=== PATIENT | female | born 1970 | race Caucasian/White ===

== ENCOUNTER 2017-04-23 05:18 | Inpatient (IN) | payer OTHER ==
[2017-04-23] VITALS (24 sets, daily range): BP systolic 102–150; BP diastolic 57–82; PULSE 66–81; RESP 15–26; Ht 152.4 cm; Wt 110.0 kg
[~2017-04-23] VITALS: Ht 152.4 cm; Wt 110.0 kg
[2017-04-23] MEDS ORDERED: CA CHLORIDE 10% 10 ML SYRINGE ONE (06:26)
[2017-04-23] MEDS ORDERED: BUPIVACAINE 0.25% (MPF) 30 ML INJ ONE (06:26)
[2017-04-23] MEDS ORDERED: BUPIVACAINE 0.25%/EPI (SDV) 30 ML INJ ONE (06:26)
[2017-04-23] MEDS ORDERED: SURGIFOAM POWDER 1 GM KIT ONE (06:26)
[2017-04-23] MEDS ORDERED: THROMBIN 5000 UNIT VIAL ONE (06:26)
[2017-04-23] MEDS ORDERED: POLYMYXIN/BACITRACIN 1L IRRIG ONE (06:35)
[2017-04-23] MEDS ORDERED: RANI150T5 PO (06:36)
[2017-04-23] MEDS ORDERED: LISI40TA9 PO (06:36)
[2017-04-23] MEDS ORDERED: ASPI-664 PO (06:36)
[2017-04-23] MEDS ORDERED: FELO5TAB35 PO (06:36)
[2017-04-23] MEDS ORDERED: CLON-379 PO (06:36)
[2017-04-23] MEDS ORDERED: ATOR40TA68 PO (06:36)
[2017-04-23] MEDS ORDERED: METO-429 PO (06:36)
[2017-04-23] MEDS ORDERED: METF500T4 PO (06:36)
[2017-04-23] MEDS ORDERED: GLYB5TAB3 PO (06:36)
--- NOTE | 2017-04-23 06:53 | HPN ---
Date/Time of Note Date/Time of Note DATE: 04/23/17 TIME: 06:52 Interval H&P Admission Note Pt. seen H&P reviewed: No system changes AARON HOWARD MD Apr 23, 2017 06:53
[2017-04-23] MEDS ORDERED: PROPOFOL 100 ML ONE (06:56)
[2017-04-23] MEDS ORDERED: ROCURONIUM 50 MG INJ ONE ×3 (06:56→08:57)
[2017-04-23] MEDS ORDERED: CEFAZOLIN 1 GM INJ ONE ×2 (06:56→07:00)
[2017-04-23] MEDS ORDERED: MIDAZOLAM 1 MG/ML 2 ML INJ ONE (06:56)
[2017-04-23] MEDS ORDERED: BISACODYL 10 MG SUPP PR PRN (07:00)
[2017-04-23] MEDS ORDERED: ACETAMINOPHEN 325 MG TAB PO PRN (07:00)
[2017-04-23] MEDS ORDERED: ONDANSETRON 4 MG INJ IV PRN ×2 (07:00→09:00)
[2017-04-23] MEDS ORDERED: AL HYDROX/MG HYDROX/SIMETH 30 ML CUP PO PRN (07:00)
[2017-04-23] MEDS ORDERED: LACTATED RINGER'S 1,000 ML IV* SCH (07:00)
[2017-04-23] MEDS ORDERED: CEPASTAT LOZENGE MT PRN (07:00)
[2017-04-23] MEDS ORDERED: CYCLOBENZAPRINE 10 MG TAB PO PRN (07:00)
[2017-04-23] MEDS ORDERED: NALOXONE (0.4 MG/ML) INJ IV PRN (07:00)
[2017-04-23] MEDS ORDERED: CEFAZOLIN 2 GM/50 ML (PMX) 50 ML IVPB ONE (07:00)
[2017-04-23] MEDS ORDERED: HYDROmorphONE 1 MG/ML SYG IV PRN (07:00)
[2017-04-23] MEDS ORDERED: DIPHENHYDRAMINE 25 MG CAP PO PRN (07:00)
[2017-04-23] MEDS ORDERED: HYDROCODONE/APAP (10/325) TAB PO PRN (07:00)
[2017-04-23] MEDS: CEFAZOLIN 1 GM/50 ML (PMX) 50 ML IVPB SCH ×3 (07:10→23:02)
[2017-04-23] MEDS ORDERED: CARISOPRODOL 350 MG TAB PO PRN (07:30)
[2017-04-23] MEDS ORDERED: PHENYLephrine (100 MCG/ML) 5ML SYG ONE ×2 (07:34→12:53)
[2017-04-23] MEDS ORDERED: POLYMYXIN/BACITRACIN 1L IRRIG IRR ONE (07:57)
[2017-04-23] MEDS ORDERED: BUPIVACAINE 0.25%/EPI (SDV) 30 ML INJ INJ ONE (07:57)
[2017-04-23] MEDS ORDERED: THROMBIN 5000 UNIT VIAL TOP ONE (07:57)
[2017-04-23] MEDS ORDERED: ACETAMINOPHEN 1000MG/100ML IV 100 ML ONE ×2 (08:17→12:54)
[2017-04-23] MEDS ORDERED: ONDANSETRON 4 MG INJ ONE ×3 (08:18→12:54)
[2017-04-23] MEDS ORDERED: DEXAMETHASONE 4 MG/ML 1 ML INJ ONE ×2 (08:18→12:54)
[2017-04-23] MEDS ORDERED: METOCLOPRAMIDE 10 MG INJ ONE ×2 (08:18→12:54)
[2017-04-23] MEDS ORDERED: NEOSTIGMINE 3 MG/3 ML SYRINGE ONE ×2 (08:49→13:44)
[2017-04-23] MEDS ORDERED: GLYCOPYRROLATE 1 MG INJ ONE ×2 (08:49→13:44)
[2017-04-23] MEDS ORDERED: SUCCINYLCHOLINE CHLORIDE 100 MG/5 ML SYG IV ONE (08:57)
[2017-04-23] MEDS ORDERED: OXYCODONE/ACETAMINOPHEN (5/325) TAB PO PRN ×2 (09:00)
[2017-04-23] MEDS ORDERED: DIPHENHYDRAMINE 50 MG INJ IV PRN (09:00)
[2017-04-23] MEDS ORDERED: ALBUMIN HUMAN 5% 250 ML IV PRN (09:00)
[2017-04-23] MEDS ORDERED: METOCLOPRAMIDE 10 MG INJ IV PRN (09:00)
[2017-04-23] MEDS ORDERED: PROPOFOL 20 ML ONE ×2 (09:00→10:11)
[2017-04-23] MEDS ORDERED: HYDROmorphONE (0.2 MG/ML) 10ML SYG IV PRN ×3 (09:00)
[2017-04-23] MEDS ORDERED: LABETALOL HCL 20MG INJ IV PRN (09:00)
[2017-04-23] MEDS ORDERED: morphine (1 MG/ML) 10ML SYRINGE IV PRN ×3 (09:00)
[2017-04-23] MEDS ORDERED: EPHEDrine SULFATE 50 MG/5 ML SYG IV PRN (09:00)
[2017-04-23] MEDS ORDERED: hydrALAzine 20 MG INJ IV PRN (09:00)
[2017-04-23] MEDS ORDERED: MEPERIDINE 25 MG INJ IV PRN (09:00)
[2017-04-23] MEDS ORDERED: FENTAnyl 50 MCG/ML VIAL ONE (09:22)
--- NOTE | 2017-04-23 09:58 | RADRPT ---
PROCEDURE: XR Lumbar Spine one view. CLINICAL INDICATION: Low back pain. Intraoperative. TECHNIQUE: Prone portable cross-table lateral. COMPARISON: No prior studies are available for comparison. FINDINGS: For the purposes of this report, the last apparent true disc level is considered to be L5-S1. Based on this, the posterior needle marker is a present at the upper L4 level and the S1 level. IMPRESSION: 1. Intraoperative imaging as described above. RPTAT: QQ .Santos Murillo MD, MD Date Time Electronically viewed and signed by .Santos Murillo MD, MD on 04/23/2017 09:58 .R/
--- NOTE | 2017-04-23 09:58 | RADRPT ---
PROCEDURE: XR Lumbar Spine one view. CLINICAL INDICATION: Low back pain. Intraoperative. TECHNIQUE: Prone portable cross-table lateral. COMPARISON: Prior study done earlier the same day. FINDINGS: For the purposes of this report, the last apparent true disc level is considered to be L5-S1. Based on this, the posterior surgical instrument is present overlying the L5-S1 level. IMPRESSION: 1. Intraoperative imaging as described above. RPTAT: QQ .Santos Murillo MD, MD Date Time Electronically viewed and signed by .Santos Murillo MD, on 04/23/2017 09:58 .R/
[2017-04-23] MEDS ORDERED: LABETALOL HCL 20MG INJ ONE (10:09)
--- NOTE | 2017-04-23 10:39 | OPR ---
Date/Time of Note Date/Time of Note DATE: 04/23/17 TIME: 10:38 Operative Report Preoperative Diagnosis L4-5 and L5-S1 HNP Postoperative Diagnosis L4-5 and L5-S1 HNP Operation/Procedure Performed right L4-5 and L5-S1 discectomy Surgeon: AARON HOWARD MD licensed sales assistant: STACY ALFARO PA-C Anesthesia: general Estimated Blood Loss: 10 - 50 ml's Specimens disk AARON HOWARD MD Apr 23, 2017 10:39
[2017-04-23] MEDS: DOCUSATE SODIUM 100 MG CAP PO SCH ×2 (11:38→20:11)
[2017-04-23] MEDS: HYDROmorphONE 0.2 MG/ML PCA IV SCH (11:38)
[2017-04-23] MEDS ORDERED: INSULIN ASPART [NOVOLOG] 3 ML PEN SC ONE (12:00)
--- NOTE | 2017-04-23 13:04 | CONS ---
Date/Time of Note Date/Time of Note DATE: 04/23/17 TIME: 12:52 Assessment/Plan Assessment/Plan Additional Assessment/Plan monitor glucose and blood pressure-----thank you ketty Consultation Date/Type/Reason Admit Date/Time Apr 23, 2017 at 05:18 Initial Consult Date 04/17/2017 Type of Consultation: pre=op int.med consult -endo c Reason for Consultation medicalland endocrine evaluation and clearance Referring Provider: AARON HOWARD MD 24 HR Interval Summary Free Text/Dictation patient seen in recovery room post op alert vital signs stable Constitutional: no complaints Exam/Review of Systems Vital Signs Vitals Vital Signs Date Time Temp Pulse Resp B/P Pulse Ox O2 Delivery O2 Flow Rate FiO2 04/23/17 12:33 97.6 04/23/17 12:08 66 15 121/65 98 Nasal Cannula 2.0 Exam Constitutional: alert, oriented Head: normocephalic ENMT: nl external ears & nose Neck: supple Respiratory: clear to auscultation Cardiovascular: regular rate and rhythm Gastrointestinal: soft Skin: nl turgor Additional Comments patient post op stable received 5 units novolog subq for glucose of 240 Results plan is to monitor dm type 2,blood pressure and general medical condition.resume all pre -op meds . rest of management per Results 24 hrs Laboratory Tests Test 04/23/17 06:03 04/23/17 10:51 Bedside Glucose 194 240 H Medications Medications Current Medications Potassium Chloride/Sodium Chloride (1/2 NS + KCl 20 Meq) 1,000 ml @ 100 mls/hr Q10H IV ; Start 04/23/17 at 06:53 Acetaminophen/ Hydrocodone Bitart ([place] (10/325)) 1 tab Q4H PRN PO PAIN LEVEL 1-5; Start 04/23/17 at 07:00 Acetaminophen/ Hydrocodone Bitart ([place] (10/325)) 2 tab Q4H PRN PO PAIN LEVEL 6-10; Start 04/23/17 at 07:00 Hydromorphone HCl 0.2 mg 0.2 mg Q1H PRN IV BREAKTHROUGH PAIN; Start 04/23/17 at 07:00 Cefazolin Sodium (Ancef 1 Gm/50 ml (Pmx)) 50 ml @ 100 mls/hr Q8H IVPB ; Start 04/23/17 at 07:00; Stop 04/23/17 at 23:29 Ondansetron HCl (Zofran Inj) 4 mg Q6H PRN IV NAUSEA AND/OR VOMITING; Start 08/30 at 07:00 Bisacodyl (Dulcolax Supp) 10 mg DAILY PRN [place] CONSTIPATION; Start 04/23/17 at 07 :00 Docusate Sodium (Colace) 100 mg BID PO Last administered on 04/23/17 11:38; Admin Dose 100 MG; Start 04/23/17 at 09:00 Pantoprazole (Protonix Iv) 40 mg DAILY@06 IV ; Start 04/24/17 at 06:00 Al Hydrox/Mg Hydrox/Simethicone (Mag-Al Plus) 15 ml Q6H PRN PO CONSTIPATION/ DYSPEPSIA; Start 04/23/17 at 07:00 Acetaminophen (Tylenol Tab) 650 mg Q4H PRN PO PARRY OR TEMP GREATER THAN 101.3F; Start 04/23/17 at 07:00 Phenol (Cepastat Lozenge) 1 lozenge PRN PRN MT SORE THROAT; Start 04/23/17 at 07:00 Diphenhydramine HCl (Benadryl) 25 mg Q6H PRN PO ITCHING; Start 04/23/17 at 07: 00 Diphenhydramine HCl (Benadryl) 25 mg Q6H PRN IV ITCHING; Start 04/23/17 at 07: 00 Naloxone HCl (Narcan) 0.2 mg Q2M PRN IV RR 8 BREATHS/MIN OR LESS; Start at 07:00 Hydromorphone HCl (Dilaudid SOCIAL AND POLITICAL STUDIES PROFESSOR) SOCIAL AND POLITICAL STUDIES PROFESSOR to be started in PACU Q4PCA IV Last administered on 04/23/17 11:38; Admin Dose 6 MG; Start 04/23/17 at 07:00 Miscellaneous Information 1. Hold SOCIAL AND POLITICAL STUDIES PROFESSOR at 1,000... SOCIAL AND POLITICAL STUDIES PROFESSOR IV ; Start 04/23/17 at 07: 00 Carisoprodol (Soma) 350 mg Q8H PRN PO spasms; Start 04/23/17 at 07:30 Atorvastatin Calcium (Lipitor) 10 mg QHS PO ; Start 04/23/17 at 21:00; Status UNV Clonidine (Catapres) 0.1 mg DAILY PO ; Start 04/24/17 at 09:00; Status UNV Felodipine (Plendil) 5 mg DAILY PO ; Start 04/24/17 at 09:00; Status UNV Glyburide (Micronase) 5 mg DAILY PO ; Start 04/24/17 at 09:00; Status UNV Lisinopril (Zestril) 40 mg DAILY PO ; Start 04/24/17 at 09:00; Status UNV Metoprolol Tartrate (Lopressor) 50 mg BID PO ; Start 04/23/17 at 21:00; Status UNV Ranitidine HCl (Zantac) 150 mg HS PO ; Start 04/23/17 at 21:00; Status UNV JING JACOBS MD Apr 23, 2017 13:02
[2017-04-23] MEDS ORDERED: GLUCAGON 1 MG INJ IM PRN (13:30)
[2017-04-23] MEDS ORDERED: DEXTROSE 50% 50 ML SYRINGE IV PRN ×2 (13:30)
[2017-04-23] MEDS ORDERED: GLUCOSE GEL 15 GRAM TUBE PO PRN ×2 (13:30)
[2017-04-23] MEDS ORDERED: GLUCOSE GEL 15 GRAM TUBE BUCCAL PRN (13:30)
[2017-04-23] MEDS: 1/2 NS + KCL 20 MEQ 1,000 ML IV SCH ×2 (15:21→16:53)
[2017-04-23] MEDS: INSULIN ASPART [NOVOLOG] 3 ML PEN SC SCH (18:12)
[2017-04-23] MEDS: DIPHENHYDRAMINE 50 MG INJ IV PRN (18:53)
[2017-04-23] MEDS: METOPROLOL 50 MG TAB PO SCH (20:10)
[2017-04-23] MEDS: ATORVASTATIN 10 MG TAB PO SCH (20:11)
[2017-04-23] MEDS: RANITIDINE 150 MG TAB PO SCH (20:11)
[2017-04-23] MEDS ORDERED: ATORVASTATIN 40 MG TAB PO SCH (21:00)
[2017-04-24 00:29] VITALS: BP 114/73; RESP 20
[2017-04-24] MEDS: HYDROmorphONE 0.2 MG/ML PCA IV SCH (03:17)
[2017-04-24] MEDS: 1/2 NS + KCL 20 MEQ 1,000 ML IV SCH ×3 (03:25→22:53)
[2017-04-24 05:20] LABS: ADD SCAN DIFF NO
[2017-04-24 05:23] LABS: BASOPHILS % 0.2 % (0.0-2.0); HEMATOCRIT 38.2 % (37.0-47.0); HEMOGLOBIN 12.8 g/dl (12.0-16.0); LYMPHOCYTES # 2.2 10^3/ul (0.8-2.9); LYMPHOCYTES % 17.6 % (15.0-51.0); MEAN CORPUSCULAR HGB CONC 33.5 g/dl (32.0-37.0); MEAN CORPUSCULAR VOLUME 89.5 fl (82.0-101.0); MEAN PLATELET VOLUME 11.2 fl (7.4-10.4); MONOCYTE # 1.2 10^3/ul (0.3-0.9); MONOCYTES % 9.3 % (0.0-11.0); NEUTROPHIL # 9.1 10^3/ul (1.6-7.5); NEUTROPHILS % 72.4 % (39.0-77.0); PLATELET COUNT 189 10^3/UL (140-415); RED BLOOD COUNT 4.27 10^6/ul (4.20-5.40); RED CELL DISTRIBUTION WIDTH 12.8 % (11.5-14.5); WHITE BLOOD COUNT 12.5 10^3/ul (4.8-10.8)
[2017-04-24 05:46] LABS: ALBUMIN 3.9 g/dl (3.3-4.9); ALBUMIN/GLOBULIN RATIO 1.69; BILIRUBIN,INDIRECT 1.7 mg/dl (0-1.1); BILIRUBIN,TOTAL 1.7 mg/dl (0.2-1.3); CREATININE 0.41 mg/dl (0.44-1.00); POTASSIUM 4.2 mmol/L (3.5-5.1); TOTAL PROTEIN 6.2 g/dl (6.1-8.1)
[2017-04-24] MEDS ORDERED: PANTOPRAZOLE 40 MG INJ IV SCH (06:00)
[2017-04-24 08:00] VITALS: BP 122/66; RESP 19
--- NOTE | 2017-04-24 08:11 | CONS ---
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 will be getting out of bed today Exam/Review of Systems Vital Signs Vitals Vital Signs Date Time Temp Pulse Resp B/P Pulse Ox O2 Delivery O2 Flow Rate FiO2 04/24/17 05:00 18 04/24/17 00:29 98.6 66 114/73 98 04/23/17 20:00 Nasal Cannula 2.0 Intake and Output 04/23/17 04/23/17 04/24/17 15:00 23:00 07:00 Intake Total 1500 ml 600 ml 1580 ml Output Total 550 ml 1110 ml 2000 ml Balance 950 ml -510 ml -420 ml Exam Constitutional: alert Psych: no complaints ENMT: nl external ears & nose Neck: supple Respiratory: clear to auscultation Cardiovascular: regular rate and rhythm Results Result Diagram: 04/24/17 0452 04/24/17 0452 Results 24 hrs Laboratory Tests Test 04/23/17 10:51 04/23/17 17:43 04/24/17 04:52 04/24/17 05:55 Bedside Glucose 240 H 258 H White Blood Count 12.5 H Red Blood Count 4.27 Hemoglobin 12.8 Hematocrit 38.2 Mean Corpuscular Volume 89.5 Mean Corpuscular Hemoglobin 30.0 Mean Corpuscular Hemoglobin Concent 33.5 Red Cell Distribution Width 12.8 Platelet Count 189 Mean Platelet Volume 11.2 H Neutrophils % 72.4 Lymphocytes % 17.6 Monocytes % 9.3 Eosinophils % 0.0 Basophils % 0.2 Nucleated Red Blood Cells % 0.0 Neutrophils # 9.1 H Lymphocytes # 2.2 Monocytes # 1.2 H Eosinophils # 0.0 Basophils # 0.0 Nucleated Red Blood Cells # 0.0 Sodium Level 131 L Potassium Level 4.2 Chloride Level 101 Carbon Dioxide Level 29 Anion Gap 5 L Blood Urea Nitrogen 6 L Creatinine 0.41 L Glucose Level 180 Calcium Level 9.0 Magnesium Level 1.7 Total Bilirubin 1.7 H Direct Bilirubin 0.00 Indirect Bilirubin 1.7 H Aspartate Amino Transf (AST/SGOT) 28 Alanine Aminotransferase (ALT/SGPT) 39 Alkaline Phosphatase 67 Total Protein 6.2 Albumin 3.9 Globulin 2.30 Albumin/Globulin Ratio 1.69 Lab Scanned Report LAB Medications Medications Current Medications Potassium Chloride/Sodium Chloride (10/15 NS + KCl 20 Meq) 1,000 ml @ 100 mls/hr Q10H IV Last administered on 04/24/17 03:25; Admin Dose 100 MLS/HR; Start 08/30 at 06:53 Acetaminophen/ Hydrocodone Bitart ([place] (10/325)) 1 tab Q4H PRN PO PAIN LEVEL 1-5; Start 04/23/17 at 07:00 Acetaminophen/ Hydrocodone Bitart ([place] (10/325)) 2 tab Q4H PRN PO PAIN LEVEL 6-10; Start 04/23/17 at 07:00 Hydromorphone HCl (Dilaudid) 0.2 mg Q1H PRN IV BREAKTHROUGH PAIN; Start at 07:00 Ondansetron HCl (Zofran Inj) 4 mg Q6H PRN IV NAUSEA AND/OR VOMITING Last administered on 04/23/17 18:48; Admin Dose 4 MG; Start 04/23/17 at 07:00 Bisacodyl (Dulcolax Supp) 10 mg DAILY PRN [place] CONSTIPATION; Start 04/23/17 at 07 :00 Docusate Sodium (Colace) 100 mg BID PO Last administered on 04/23/17 20:11; Admin Dose 100 MG; Start 04/23/17 at 09:00 Pantoprazole (Protonix Iv) 40 mg DAILY@06 IV Last administered on 04/24/17 05: 20; Admin Dose 40 MG; Start 04/24/17 at 06:00 Al Hydrox/Mg Hydrox/Simethicone (Mag-Al Plus) 15 ml Q6H PRN PO CONSTIPATION/ DYSPEPSIA; Start 04/23/17 at 07:00 Acetaminophen (Tylenol Tab) 650 mg Q4H PRN PO PARRY OR TEMP GREATER THAN 101.3F; Start 04/23/17 at 07:00 Phenol (Cepastat Lozenge) 1 lozenge PRN PRN MT SORE THROAT; Start 04/23/17 at 07:00 Diphenhydramine HCl (Benadryl) 25 mg Q6H PRN PO ITCHING; Start 04/23/17 at 07: 00 Diphenhydramine HCl (Benadryl) 25 mg Q6H PRN IV ITCHING Last administered on 18:53; Admin Dose 25 MG; Start 04/23/17 at 07:00 Naloxone HCl (Narcan) 0.2 mg Q2M PRN IV RR 8 BREATHS/MIN OR LESS; Start at 07:00 Hydromorphone HCl (Dilaudid REAL ESTATE LAWYER) REAL ESTATE LAWYER to be started in PACU Q4PCA IV Last administered on 04/24/17 03:17; Admin Dose 6 MG; Start 04/23/17 at 07:00 Miscellaneous Information 1. Hold REAL ESTATE LAWYER at 1,000... REAL ESTATE LAWYER IV ; Start 04/23/17 at 07: 00 Carisoprodol (Soma) 350 mg Q8H PRN PO spasms; Start 04/23/17 at 07:30 Clonidine (Catapres) 0.1 mg DAILY PO ; Start 04/24/17 at 09:00 Felodipine (Plendil) 5 mg DAILY PO ; Start 04/24/17 at 09:00 Glyburide (Micronase) 5 mg DAILY PO ; Start 04/24/17 at 09:00 Lisinopril (Zestril) 40 mg DAILY PO ; Start 04/24/17 at 09:00 Metoprolol Tartrate (Lopressor) 50 mg BID PO Last administered on 04/23/17 20: 10; Admin Dose 50 MG; Start 04/23/17 at 21:00 Ranitidine HCl (Zantac) 150 mg HS PO Last administered on 04/23/17 20:11; Admin Dose 150 MG; Start 04/23/17 at 21:00 Atorvastatin Calcium (Lipitor) 10 mg HS PO Last administered on 04/23/17 20:11 ; Admin Dose 10 MG; Start 04/23/17 at 21:00 Miscellaneous Information 1 ea NOTE XX ; Start 04/23/17 at 13:30 Glucose (Glutose) 15 gm Q15M PRN PO DECREASED GLUCOSE; Start 04/23/17 at 13:30 Glucose (Glutose) 22.5 gm Q15M PRN PO DECREASED GLUCOSE; Start 04/23/17 at 13: 30 Dextrose (D50w Syringe) 25 ml Q15M PRN IV DECREASED GLUCOSE; Start 04/23/17 at 13:30 Dextrose (D50w Syringe) 50 ml Q15M PRN IV DECREASED GLUCOSE; Start 04/23/17 at 13:30 Glucagon (Glucagen) 1 mg Q15M PRN IM DECREASED GLUCOSE; Start 04/23/17 at 13:30 Glucose (Glutose) 15 gm Q15M PRN BUCCAL DECREASED GLUCOSE; Start 04/23/17 at 13 :30 JING JACOBS MD Apr 24, 2017 08:11
--- NOTE | 2017-04-24 08:24 | PN ---
Date/Time of Note Date/Time of Note DATE: 04/24/17 TIME: 08:22 Assessment/Plan Lines/Catheters IV Catheter Type (from Nrsg): Peripheral IV Lee in Place (from Nrsg): Yes Assessment/Plan Assessment/Plan s/p lumbar microdiscectomy not stable for D/C today due to pain, not cleared by PT continue PT, ambulate pain control routine care Subjective 24 Hr Interval Summary c/o LBP, leg pain improved Exam/Review of Systems Vital Signs Vitals Vital Signs Date Time Temp Pulse Resp B/P Pulse Ox O2 Delivery O2 Flow Rate FiO2 04/24/17 08:00 99.0 77 19 122/66 98 04/23/17 20:00 Nasal Cannula 2.0 Intake and Output 04/23/17 04/23/17 04/24/17 15:00 23:00 07:00 Intake Total 1500 ml 600 ml 1580 ml Output Total 550 ml 1110 ml 2000 ml Balance 950 ml -510 ml -420 ml Exam Free Text/Dictation drain output 10cc/last shift - removed new dressing incision c/d/i no calf TTP/cording TA, Gastroc 4/5 on right Results Result Diagram: 04/24/17 0452 04/24/17 0452 STACY ALFARO PA-C Apr 24, 2017 08:24
[2017-04-24] MEDS: metFORMIN 500 MG TAB PO SCH (08:33)
[2017-04-24] MEDS: HYDROCODONE/APAP (10/325) TAB PO PRN ×7 (08:33→23:34)
[2017-04-24] MEDS: DOCUSATE SODIUM 100 MG CAP PO SCH ×2 (08:33→20:21)
[2017-04-24] MEDS: FELODIPINE (ER) 5 MG TAB PO SCH (08:34)
[2017-04-24] MEDS: METOPROLOL 50 MG TAB PO SCH ×2 (08:35→20:21)
[2017-04-24] MEDS: LISINOPRIL 20 MG TAB PO SCH (08:35)
[2017-04-24] MEDS: glyBURIDE 5 MG TAB PO SCH (08:36)
[2017-04-24] MEDS: INSULIN ASPART [NOVOLOG] 3 ML PEN SC SCH ×2 (08:43→18:31)
[2017-04-24 19:00] VITALS: BP 128/68; RESP 18
[2017-04-24] MEDS: ATORVASTATIN 10 MG TAB PO SCH (20:21)
[2017-04-24] MEDS: RANITIDINE 150 MG TAB PO SCH (20:21)
[2017-04-24] MEDS: DIPHENHYDRAMINE 50 MG INJ IV PRN (23:34)
[2017-04-25] MEDS: PANTOPRAZOLE (EC) 40 MG TAB PO SCH (05:03)
[2017-04-25 05:17] LABS: ADD SCAN DIFF NO
[2017-04-25 05:24] LABS: BASOPHILS % 0.2 % (0.0-2.0); EOSINOPHILS % 0.4 % (0.0-7.0); HEMOGLOBIN 12.7 g/dl (12.0-16.0); LYMPHOCYTES # 2.6 10^3/ul (0.8-2.9); LYMPHOCYTES % 25.8 % (15.0-51.0); MEAN CORPUSCULAR HEMOGLOBIN 30.2 pg (29.0-33.0); MEAN CORPUSCULAR HGB CONC 33.4 g/dl (32.0-37.0); MEAN CORPUSCULAR VOLUME 90.3 fl (82.0-101.0); MEAN PLATELET VOLUME 11.5 fl (7.4-10.4); MONOCYTE # 1.2 10^3/ul (0.3-0.9); MONOCYTES % 12.2 % (0.0-11.0); NEUTROPHIL # 6.2 10^3/ul (1.6-7.5); NEUTROPHILS % 60.9 % (39.0-77.0); PLATELET COUNT 182 10^3/UL (140-415); RED BLOOD COUNT 4.21 10^6/ul (4.20-5.40); RED CELL DISTRIBUTION WIDTH 12.7 % (11.5-14.5); WHITE BLOOD COUNT 10.1 10^3/ul (4.8-10.8)
[2017-04-25 06:03] LABS: CALCIUM 8.9 mg/dl (8.4-10.2); CREATININE 0.42 mg/dl (0.44-1.00); MAGNESIUM 1.7 mg/dl (1.7-2.5); POTASSIUM 3.4 mmol/L (3.5-5.1)
--- NOTE | 2017-04-25 07:44 | PN ---
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
--- NOTE | 2017-04-25 08:09 | CONS ---
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 Problems: Additional Assessment/Plan needs to d/c iv and change to heparin lock .na and k slightly low.nedds to ambulate and increase oral intake and dc ,iv intake Consultation Date/Type/Reason Admit Date/Time Apr 23, 2017 at 05:18 Initial Consult Date 04/17/2017 Type of Consultation: pre=op int.med consult -endo c Reason for Consultation f/u dm type 2,hypertension and general medical condition Referring Provider: AARON HOWARD MD 24 HR Interval Summary Free Text/Dictation patient alert only complaint some back pain did well ambulating yesterday Constitutional: no complaints Exam/Review of Systems Vital Signs Vitals Vital Signs Date Time Temp Pulse Resp B/P Pulse Ox O2 Delivery O2 Flow Rate FiO2 04/24/17 19:00 98.3 78 18 128/68 94 04/23/17 20:00 Nasal Cannula 2.0 Intake and Output 04/24/17 04/24/17 04/25/17 15:00 23:00 07:00 Intake Total 700 ml 700 ml 240 ml Output Total 900 ml 400 ml Balance 700 ml -200 ml -160 ml Exam Constitutional: alert Psych: no complaints Head: normocephalic Respiratory: clear to auscultation Cardiovascular: regular rate and rhythm Gastrointestinal: soft Results Result Diagram: 04/25/17 0443 04/25/17 0443 Results 24 hrs Laboratory Tests Test 04/24/17 08:41 04/24/17 12:41 04/24/17 18:19 04/25/17 04:43 Bedside Glucose 164 196 230 H White Blood Count 10.1 Red Blood Count 4.21 Hemoglobin 12.7 Hematocrit 38.0 Mean Corpuscular Volume 90.3 Mean Corpuscular Hemoglobin 30.2 Mean Corpuscular Hemoglobin Concent 33.4 Red Cell Distribution Width 12.7 Platelet Count 182 Mean Platelet Volume 11.5 H Neutrophils % 60.9 Lymphocytes % 25.8 Monocytes % 12.2 H Eosinophils % 0.4 Basophils % 0.2 Nucleated Red Blood Cells % 0.0 Neutrophils # 6.2 Lymphocytes # 2.6 Monocytes # 1.2 H Eosinophils # 0.0 Basophils # 0.0 Nucleated Red Blood Cells # 0.0 Sodium Level 129 L Potassium Level 3.4 L Chloride Level 97 Carbon Dioxide Level 30 Anion Gap 5 L Blood Urea Nitrogen 9 Creatinine 0.42 L Glucose Level 192 Calcium Level 8.9 Magnesium Level 1.7 Medications Medications Current Medications Potassium Chloride/Sodium Chloride (/2 NS + KCl 20 Meq) 1,000 ml @ 100 mls/hr Q10H IV Last administered on 04/24/17 03:25; Admin Dose 100 MLS/HR; Start 08/30 at 06:53 Acetaminophen/ Hydrocodone Bitart ([place] (10325)) 1 tab Q4H PRN PO PAIN LEVEL 1-5 Last administered on 04/24/17 23:34; Admin Dose 1 TAB; Start 04/23/17 at 07 :00 Acetaminophen/ Hydrocodone Bitart ([place] (10325)) 2 tab Q4H PRN PO PAIN LEVEL 6-10; Start 04/23/17 at 07:00 Hydromorphone HCl (Dilaudid) 0.2 mg Q1H PRN IV BREAKTHROUGH PAIN; Start at 07:00 Ondansetron HCl (Zofran Inj) 4 mg Q6H PRN IV NAUSEA AND/OR VOMITING Last administered on 04/23/17 18:48; Admin Dose 4 MG; Start 04/23/17 at 07:00 Bisacodyl (Dulcolax Supp) 10 mg DAILY PRN [place] CONSTIPATION; Start 04/23/17 at 07 :00 Docusate Sodium (Colace) 100 mg BID PO Last administered on 04/24/17 20:21; Admin Dose 100 MG; Start 04/23/17 at 09:00 Al Hydrox/Mg Hydrox/Simethicone (Mag-Al Plus) 15 ml Q6H PRN PO CONSTIPATION/ DYSPEPSIA Last administered on 04/25/17 05:02; Admin Dose 15 ML; Start at 07:00 Acetaminophen (Tylenol Tab) 650 mg Q4H PRN PO PARRY OR TEMP GREATER THAN 101.3F; Start 04/23/17 at 07:00 Phenol (Cepastat Lozenge) 1 lozenge PRN PRN MT SORE THROAT; Start 04/23/17 at 07:00 Diphenhydramine HCl (Benadryl) 25 mg Q6H PRN PO ITCHING Last administered on 08:34; Admin Dose 25 MG; Start 04/23/17 at 07:00 Diphenhydramine HCl (Benadryl) 25 mg Q6H PRN IV ITCHING Last administered on 23:34; Admin Dose 25 MG; Start 04/23/17 at 07:00 Naloxone HCl (Narcan) 0.2 mg Q2M PRN IV RR 8 BREATHS/MIN OR LESS; Start at 07:00 Miscellaneous Information 1. Hold INVOICE CHECKER at 1,000... INVOICE CHECKER IV ; Start 04/23/17 at 07: 00 Carisoprodol (Soma) 350 mg Q8H PRN PO spasms Last administered on 04/24/17 08: 32; Admin Dose 350 MG; Start 04/23/17 at 07:30 Clonidine (Catapres) 0.1 mg DAILY PO Last administered on 04/24/17 08:36; Admin Dose 0.1 MG; Start 04/24/17 at 09:00 Felodipine (Plendil) 5 mg DAILY PO Last administered on 04/24/17 08:34; Admin Dose 5 MG; Start 04/24/17 at 09:00 Glyburide (Micronase) 5 mg DAILY PO Last administered on 04/24/17 08:36; Admin Dose 5 MG; Start 04/24/17 at 09:00 Lisinopril (Zestril) 40 mg DAILY PO Last administered on 04/24/17 08:35; Admin Dose 40 MG; Start 04/24/17 at 09:00 Metoprolol Tartrate (Lopressor) 50 mg BID PO Last administered on 04/24/17 20: 21; Admin Dose 50 MG; Start 04/23/17 at 21:00 Ranitidine HCl (Zantac) 150 mg HS PO Last administered on 04/24/17 20:21; Admin Dose 150 MG; Start 04/23/17 at 21:00 Atorvastatin Calcium (Lipitor) 10 mg HS PO Last administered on 04/24/17 20:21 ; Admin Dose 10 MG; Start 04/23/17 at 21:00 Miscellaneous Information 1 ea NOTE XX ; Start 04/23/17 at 13:30 Glucose (Glutose) 15 gm Q15M PRN PO DECREASED GLUCOSE; Start 04/23/17 at 13:30 Glucose (Glutose) 22.5 gm Q15M PRN PO DECREASED GLUCOSE; Start 04/23/17 at 13: 30 Dextrose (D50w Syringe) 25 ml Q15M PRN IV DECREASED GLUCOSE; Start 04/23/17 at 13:30 Dextrose (D50w Syringe) 50 ml Q15M PRN IV DECREASED GLUCOSE; Start 04/23/17 at 13:30 Glucagon (Glucagen) 1 mg Q15M PRN IM DECREASED GLUCOSE; Start 04/23/17 at 13:30 Glucose (Glutose) 15 gm Q15M PRN BUCCAL DECREASED GLUCOSE; Start 04/23/17 at 13 :30 Pantoprazole (Protonix Tab) 40 mg DAILY@06 PO Last administered on 04/25/17t 05 :03; Admin Dose 40 MG; Start 04/25/17 at 06:00 JING JACOBS MD Apr 25, 2017 08:08
[2017-04-25] MEDS: glyBURIDE 5 MG TAB PO SCH (08:23)
[2017-04-25] MEDS: HYDROCODONE/APAP (10/325) TAB PO PRN ×4 (08:23→19:08)
[2017-04-25] MEDS: DOCUSATE SODIUM 100 MG CAP PO SCH ×2 (08:23→21:10)
[2017-04-25] MEDS: METOPROLOL 50 MG TAB PO SCH ×2 (08:26→21:11)
[2017-04-25] MEDS: LISINOPRIL 20 MG TAB PO SCH (08:27)
[2017-04-25] MEDS: metFORMIN 500 MG TAB PO SCH (08:27)
[2017-04-25] MEDS: FELODIPINE (ER) 5 MG TAB PO SCH (08:28)
[2017-04-25 08:38] VITALS: BP 146/70; RESP 19
[2017-04-25] MEDS: 1/2 NS + KCL 20 MEQ 1,000 ML IV SCH ×2 (08:53→18:53)
[2017-04-25] MEDS: INSULIN ASPART [NOVOLOG] 3 ML PEN SC SCH ×2 (09:03→17:25)
[2017-04-25 20:31] VITALS: BP 131/72; RESP 20
[2017-04-25] MEDS: ATORVASTATIN 10 MG TAB PO SCH (21:10)
[2017-04-25] MEDS: RANITIDINE 150 MG TAB PO SCH (21:10)
[2017-04-26] MEDS: HYDROCODONE/APAP (10/325) TAB PO PRN ×3 (01:18→14:24)
[2017-04-26] MEDS: 1/2 NS + KCL 20 MEQ 1,000 ML IV SCH ×2 (04:53→13:56)
[2017-04-26 05:36] LABS: ADD SCAN DIFF NO
[2017-04-26 05:47] LABS: BASOPHILS % 0.1 % (0.0-2.0); EOSINOPHILS # 0.1 10^3/ul (0.0-0.5); EOSINOPHILS % 1.6 % (0.0-7.0); HEMATOCRIT 36.3 % (37.0-47.0); HEMOGLOBIN 11.9 g/dl (12.0-16.0); LYMPHOCYTES # 2.7 10^3/ul (0.8-2.9); LYMPHOCYTES % 32.9 % (15.0-51.0); MEAN CORPUSCULAR HEMOGLOBIN 29.5 pg (29.0-33.0); MEAN CORPUSCULAR HGB CONC 32.8 g/dl (32.0-37.0); MEAN CORPUSCULAR VOLUME 89.9 fl (82.0-101.0); MEAN PLATELET VOLUME 11.6 fl (7.4-10.4); MONOCYTE # 0.9 10^3/ul (0.3-0.9); MONOCYTES % 10.7 % (0.0-11.0); NEUTROPHIL # 4.5 10^3/ul (1.6-7.5); NEUTROPHILS % 54.3 % (39.0-77.0); PLATELET COUNT 166 10^3/UL (140-415); RED BLOOD COUNT 4.04 10^6/ul (4.20-5.40); RED CELL DISTRIBUTION WIDTH 12.6 % (11.5-14.5); WHITE BLOOD COUNT 8.2 10^3/ul (4.8-10.8)
[2017-04-26 06:09] LABS: CREATININE 0.4 mg/dl (0.44-1.00); MAGNESIUM 1.7 mg/dl (1.7-2.5); POTASSIUM 3.6 mmol/L (3.5-5.1)
[2017-04-26] MEDS: PANTOPRAZOLE (EC) 40 MG TAB PO SCH (06:11)
--- NOTE | 2017-04-26 07:49 | PDOCDIS ---
Discharge Instructions CONDITION Patient Condition: Good HOME CARE INSTRUCTIONS: Special Diet: CARB CONTROLLED AARON HOWARD MD Apr 26, 2017 07:49
--- NOTE | 2017-04-26 08:14 | CONS ---
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 Problems: Additional Assessment/Plan patient stable will go home on current medication Consultation Date/Type/Reason Admit Date/Time Apr 23, 2017 at 05:18 Initial Consult Date 04/17/2017 Type of Consultation: pre=op int.med consult -endo c Reason for Consultation medical f/u re dm type2 hypertensin and general medical condition Referring Provider: AARON HOWARD MD 24 HR Interval Summary Constitutional: improved, no complaints Exam/Review of Systems Vital Signs Vitals Vital Signs Date Time Temp Pulse Resp B/P Pulse Ox O2 Delivery O2 Flow Rate FiO2 04/25/17 20:31 98.1 89 20 131/72 98 04/23/17 20:00 Nasal Cannula 2.0 Intake and Output 04/25/17 04/25/17 04/26/17 15:00 23:00 07:00 Intake Total 700 ml 650 ml Output Total 1100 ml Balance -400 ml 650 ml Exam Constitutional: alert Psych: no complaints Head: normocephalic Respiratory: clear to auscultation Cardiovascular: regular rate and rhythm Gastrointestinal: soft Results Result Diagram: 04/26/17 0502 04/26/17 0502 Results 24 hrs Laboratory Tests Test 04/26/17 05:02 White Blood Count 8.2 Red Blood Count 4.04 L Hemoglobin 11.9 L Hematocrit 36.3 L Mean Corpuscular Volume 89.9 Mean Corpuscular Hemoglobin 29.5 Mean Corpuscular Hemoglobin Concent 32.8 Red Cell Distribution Width 12.6 Platelet Count 166 Mean Platelet Volume 11.6 H Neutrophils % 54.3 Lymphocytes % 32.9 Monocytes % 10.7 Eosinophils % 1.6 Basophils % 0.1 Nucleated Red Blood Cells % 0.0 Neutrophils # 4.5 Lymphocytes # 2.7 Monocytes # 0.9 Eosinophils # 0.1 Basophils # 0.0 Nucleated Red Blood Cells # 0.0 Sodium Level 129 L Potassium Level 3.6 Chloride Level 96 L Carbon Dioxide Level 30 Anion Gap 7 L Blood Urea Nitrogen 7 Creatinine 0.40 L Glucose Level 164 Calcium Level 9.0 Magnesium Level 1.7 Medications Medications Current Medications Potassium Chloride/Sodium Chloride (1/2 NS + KCl 20 Meq) 1,000 ml @ 100 mls/hr Q10H IV Last administered on 04/24/17 03:25; Admin Dose 100 MLS/HR; Start 08/30 at 06:53 Acetaminophen/ Hydrocodone Bitart ([place] (10/325)) 1 tab Q4H PRN PO PAIN LEVEL 1-5 Last administered on 04/26/17 06:12; Admin Dose 1 TAB; Start 04/23/17 at 07 :00 Acetaminophen/ Hydrocodone Bitart ([place] (10/325)) 2 tab Q4H PRN PO PAIN LEVEL 6-10; Start 04/23/17 at 07:00 Hydromorphone HCl (Dilaudid) 0.2 mg Q1H PRN IV BREAKTHROUGH PAIN; Start at 07:00 Ondansetron HCl (Zofran Inj) 4 mg Q6H PRN IV NAUSEA AND/OR VOMITING Last administered on 04/23/17 18:48; Admin Dose 4 MG; Start 04/23/17 at 07:00 Bisacodyl (Dulcolax Supp) 10 mg DAILY PRN RI CONSTIPATION; Start 04/23/17 at 07 :00 Docusate Sodium (Colace) 100 mg BID PO Last administered on 04/25/17 21:10; Admin Dose 100 MG; Start 04/23/17 at 09:00 Al Hydrox/Mg Hydrox/Simethicone (Mag-Al Plus) 15 ml Q6H PRN PO CONSTIPATION/ DYSPEPSIA Last administered on 04/25/17 05:02; Admin Dose 15 ML; Start at 07:00 Acetaminophen (Tylenol Tab) 650 mg Q4H PRN PO PARRY OR TEMP GREATER THAN 101.3F; Start 04/23/17 at 07:00 Phenol (Cepastat Lozenge) 1 lozenge PRN PRN MT SORE THROAT; Start 04/23/17 at 07:00 Diphenhydramine HCl (Benadryl) 25 mg Q6H PRN PO ITCHING Last administered on 08:34; Admin Dose 25 MG; Start 04/23/17 at 07:00 Diphenhydramine HCl (Benadryl) 25 mg Q6H PRN IV ITCHING Last administered on 23:34; Admin Dose 25 MG; Start 04/23/17 at 07:00 Naloxone HCl (Narcan) 0.2 mg Q2M PRN IV RR 8 BREATHS/MIN OR LESS; Start at 07:00 Miscellaneous Information 1. Hold BODY RECALL INSTRUCTOR at 1,000... BODY RECALL INSTRUCTOR IV ; Start 04/23/17 at 07: 00 Carisoprodol (Soma) 350 mg Q8H PRN PO spasms Last administered on 04/24/17 08: 32; Admin Dose 350 MG; Start 04/23/17 at 07:30 Clonidine (Catapres) 0.1 mg DAILY PO Last administered on 04/25/17 08:27; Admin Dose 0.1 MG; Start 04/24/17 at 09:00 Felodipine (Plendil) 5 mg DAILY PO Last administered on 04/25/17 08:28; Admin Dose 5 MG; Start 04/24/17 at 09:00 Glyburide (Micronase) 5 mg DAILY PO Last administered on 04/25/17 08:23; Admin Dose 5 MG; Start 04/24/17 at 09:00 Lisinopril (Zestril) 40 mg DAILY PO Last administered on 04/25/17 08:27; Admin Dose 40 MG; Start 04/24/17 at 09:00 Metoprolol Tartrate (Lopressor) 50 mg BID PO Last administered on 04/25/17 21: 11; Admin Dose 50 MG; Start 04/23/17 at 21:00 Ranitidine HCl (Zantac) 150 mg HS PO Last administered on 04/25/17 21:10; Admin Dose 150 MG; Start 04/23/17 at 21:00 Atorvastatin Calcium (Lipitor) 10 mg HS PO Last administered on 04/25/17 21:10 ; Admin Dose 10 MG; Start 04/23/17 at 21:00 Miscellaneous Information 1 ea NOTE XX ; Start 04/23/17 at 13:30 Glucose (Glutose) 15 gm Q15M PRN PO DECREASED GLUCOSE; Start 04/23/17 at 13:30 Glucose (Glutose) 22.5 gm Q15M PRN PO DECREASED GLUCOSE; Start 04/23/17 at 13: 30 Dextrose (D50w Syringe) 25 ml Q15M PRN IV DECREASED GLUCOSE; Start 04/23/17 at 13:30 Dextrose (D50w Syringe) 50 ml Q15M PRN IV DECREASED GLUCOSE; Start 04/23/17 at 13:30 Glucagon (Glucagen) 1 mg Q15M PRN IM DECREASED GLUCOSE; Start 04/23/17 at 13:30 Glucose (Glutose) 15 gm Q15M PRN BUCCAL DECREASED GLUCOSE; Start 04/23/17 at 13 :30 Pantoprazole (Protonix Tab) 40 mg DAILY@06 PO Last administered on 04/26/17t 06 :11; Admin Dose 40 MG; Start 04/25/17 at 06:00 JING JACOBS MD Apr 26, 2017 08:14
[2017-04-26 08:20] VITALS: BP 131/79; RESP 19
[2017-04-26] MEDS: FELODIPINE (ER) 5 MG TAB PO SCH (08:46)
[2017-04-26] MEDS: metFORMIN 500 MG TAB PO SCH (08:46)
[2017-04-26] MEDS: LISINOPRIL 20 MG TAB PO SCH (08:47)
[2017-04-26] MEDS: DOCUSATE SODIUM 100 MG CAP PO SCH (08:47)
[2017-04-26] MEDS: METOPROLOL 50 MG TAB PO SCH (08:47)
[2017-04-26] MEDS: INSULIN ASPART [NOVOLOG] 3 ML PEN SC SCH ×2 (08:50→13:07)
[2017-04-26] MEDS: glyBURIDE 5 MG TAB PO SCH (08:51)
--- NOTE | 2017-05-01 10:08 | OPR ---
DATE OF OPERATION: 04/23/2017 PREOPERATIVE DIAGNOSES: 1. Central disk herniation at L4-5. 2. Right disk herniation L5-S1. 3. Lumbar radiculopathy. 4. Morbid obesity (BMI 47.4). POSTOPERATIVE DIAGNOSES: 1. Central disk herniation at L4-5. 2. Right disk herniation L5-S1. 3. Lumbar radiculopathy. 4. Morbid obesity (BMI 47.4). OPERATIVE PROCEDURE: 1. Right L4-5 and L5-S1 decompression. 2. Right L4-5 and L5-S1 diskectomy. 3. Lateral localizing film x2. 4. Intraoperative neural monitoring (2.5 hours). 5. Use of operative microscope. 6. Epidural injection via catheter. ANESTHESIOLOGIST: Vj Starkey MD ANESTHESIA: General. SURGEON: Jm Starks MD STAGE SETTINGS PAINTER: Yas Ag PA-C NEED FOR RECORD LABEL INTERNSHIP: licensed investment sales assistant was required for retraction of neurovascular elements. This cannot be done with a motorcycle technician. FINDINGS: Neural monitoring throughout the case revealed bilateral L4 and S1 amplitudes down 30 percent. At the end of the case, all nerve signals returned to normal with the exception of right L5, which was still down 20 percent. The patient had morbid obesity which complicated the procedure and added at least 30 minutes to the surgery. In addition, the patient had a central herniation complicating the procedure which added an additional 30 minutes on top of that. ESTIMATED BLOOD LOSS: 40 mL. DRAINS: One. SPECIMENS: L4-5 and L5-S1 disk. COMPLICATIONS: None. INDICATIONS FOR PROCEDURE: This is a 47-year-old female with right greater than left lumbosacral radiculopathy with herniations at L4-5 and L5-S1. She failed non-operative measures; therefore, was recommended to proceed with the above- mentioned procedure. Preoperatively we discussed the risks, benefits and alternatives. She understood and wished to proceed. DESCRIPTION OF PROCEDURE: The patient was identified in the preoperative holding area, given Ancef antibiotics and taken to the operating room where she was successfully placed under general anesthesia by Dr. Starkey. Neural monitoring leads were placed, sequential compression devices were applied, Lee catheter was introduced. Neural monitoring was utilized during the procedure for 2.5 hours to include SSEP, MEP and EMG. Start time was 7:45 a.m., cleared time was 10:15 a.m. Initially the patient was placed prone on the operating table over a Kingston frame; however, due to the size of her abdomen there was too much pressure on her abdomen; therefore, we had to take her off the table and place a Harvey flat top table and then reposition her prone, allowing the belly to be free. The back was then prepped and draped in the usual sterile fashion. Spine needles were placed and a lateral localizing film was obtained to confirm the correct levels. Once this was confirmed, I injected the paraspinal musculature with 0.25 percent Marcaine with epinephrine. An incision was then made from L4 to the sacrum. The incision was taken down to the dorsal fascia, which was incised with Bovie cautery. Due to the patient's morbid obesity, extended instruments had to be used and at least 30 minutes were added for the exposure. Once I was able to expose the right L4, L5 and S1 lamina, self-retaining retractors were placed. Repeat lateral films obtained to confirm the correct levels. Once this was confirmed, the microscope was brought in. Initially a right sided hemilaminotomy, partial medial facetectomy and foraminotomy were performed at the L5-S1 level using Kerrison punches, curets and a high speed kaden. I removed the ligamentum flavum. I identified the S1 nerve root which my training assistant retracted medially. I then made an annulotomy followed by diskectomy at this level. This allowed improvement of the S1 nerve roots. I then turned my attention to the L4-5 level. A high speed kaden was used to perform a hemilaminotomy. Ligamentum flavum was sharply dissected. My training assistant then retracted neural elements medially. I spent quite a bit of time trying to remove all the disk herniations. I felt that there was still an extruded fragment more medially located; therefore, I had to do a sublaminar decompression. This added at least another 30 minutes to the procedure. This was more complicated than performing a standard microdiskectomy. I was able to decompression beyond midline by removing the inferior aspect of the spinous process. A significant portion of the facet had to also be removed in order to get lateral enough to protect the dura. This partial facet removal was on the ipsilateral side on the right side. Once this was done, I was able to see the extruded fragment which was extruded inferiorly. I was able to extend the annulotomy and remove this large fragment centrally. Once this was done, I felt that there was no longer any compression. I did an additional foraminotomy of L5 to help with the nerve root, but the signal only improved partially. This may have been due to diabetes or her prolonged nerve root compression either from the herniation or the retraction. I then irrigated the wound. Hemostasis was achieved with bipolar cautery and Surgifoam. Valsalva maneuver was performed and there was no leak of CSF. The anesthesiologist rachelle peripheral blood, mixed this with thrombin and injected over the dura for hemostatic purposes. I passed an epidural catheter through which I injected 100 micrograms of fentanyl. I then placed a deep subfascial drain and removed the retractors, then closed the deep fascia with a 1 Vicryl stitch. I then closed the subcutaneous tissue with a 2-0 Vicryl stitch, 4-0 Monocryl closure was then performed. Dermabond with sterile dressing was then applied. The patient was then awakened from anesthesia and taken to the recovery room in stable condition. There was some redness over her chest and abdomen which was expected due to her abdominal girth. Lap, sponge and instrument counts were correct x2. There were no apparent intraoperative complications for this surgery. The patient will be returned to the [facility] for routine postoperative care to include pain control, antibiotics and physical therapy. Dictated By: Jm Starks MD /ernst/porter /Document#: [id number] RIKY
== END 2017-04-26 15:00 | disposition home or self-care (01) | DRG 519 ==
LOC: REC 05:18 → MS1 12:51
PROVIDERS: ADMIT Specialist; ATTEND Specialist
PROC: 0SB20ZZ Excision of Lumbar Vertebral Disc, Open Approach (ICD-10-PCS; 2017-04-23)
PROC: 0SB40ZZ Excision of Lumbosacral Disc, Open Approach (ICD-10-PCS; 2017-04-23)
PROC: 01NB0ZZ Release Lumbar Nerve, Open Approach (ICD-10-PCS; principal; 2017-04-23 07:00)
DX: M51.16 Intervertebral disc disorders with radiculopathy, lumbar region (principal); Z68.42 Body mass index [BMI] 45.0-49.9, adult; I10 Essential (primary) hypertension; M51.17 Intervertebral disc disorders with radiculopathy, lumbosacral region; M48.06 Spinal stenosis, lumbar region; Z79.82 Long term (current) use of aspirin; E78.5 Hyperlipidemia, unspecified; E11.9 Type 2 diabetes mellitus without complications; E66.01 Morbid (severe) obesity due to excess calories
CPT/HCPCS: 72020; 80048; 80053; 82962; 83735; 85025; 86999; 87086; 97116; 97162; 97530; C9113; J0131; J0690; J1100; J1170; J1200; J1815; J2250; J2370; J2405; J2710; J2765; J3010; J3480; J7999

== ENCOUNTER 2017-09-12 13:58 | Emergency (ER) | payer OTHER ==
[~2017-09-12] VITALS: Ht 152.4 cm; Wt 109.5 kg
[~2017-09-12 13:58] MED LIST: ASPI-664 PO; ATOR40TA68 PO; CLON-379 PO; FELO5TAB35 PO; GLYB5TAB3 PO; LISI40TA9 PO; METF500T4 PO; METO-429 PO; RANI150T5 PO
[2017-09-12 14:00] VITALS: Ht 152.4 cm; Wt 109.5 kg
[2017-09-12] MEDS ORDERED: HYDROCODONE/APAP (10/325) TAB PO ONE (16:00)
[2017-09-12 16:37] LABS: CALCIUM 9.4 mg/dl (8.4-10.2); CREATININE 0.39 mg/dl (0.44-1.00); POTASSIUM 4.2 mmol/L (3.5-5.1)
--- NOTE | 2017-09-12 16:37 | RADRPT ---
PROCEDURE: US bilateral lower extremity veins. CLINICAL INDICATION: Bilateral leg pain and swelling. TECHNIQUE: Multiple longitudinal and transverse images of the bilateral lower extremity veins were obtained with roman scale and color Doppler imaging. The common femoral vein, femoral vein, and popl iteal vein were evaluated. 2D grayscale measurements with compression sonography, color Doppler, and pulsed Doppler with augmentation. COMPARISON: No prior studies are available for comparison. FINDINGS: The bilateral common femoral, femoral and popliteal veins are normally compressible throughout. Col or flow demonstrates normal filling of the vessels. Normal waveforms are visualized and there is no rmal response to augmentation. IMPRESSION: 1. No evidence of deep vein thrombosis involving either lower extremity. RPTAT: QQ .Santos Murillo MD, MD Date Time Electronically viewed and signed by .Santos Murillo MD, on 09/12/2017 16:37 .R/
--- NOTE | 2017-09-12 16:55 | ERD ---
ER Documentation Chief Complaint Chief Complaint PT referred by PMD to r/o B DVT. HPI This is a 47-year-old female who is sent in by her primary care physician or pain specialist for evaluation of DVT. The patient is noted at least 5-6 months of symptoms including cramping in the calf right greater than left. She was sent by her pain medicine specialist yesterday to be evaluated for DVT and have a chemistry profile. It appears the patient is also having an exacerbation of her chronic back pain. She takes [place] but ran out. She had her prescription refilled by her pain medicine specialist yesterday but did not fill it and did not take medication today. No bowel or bladder incontinence and /or retention. The back pain is similar to chronic pain in the past. No chest pain or shortness of breath. No history of DVT. ROS All systems reviewed and are negative except as per history of present illness. Medications Home Meds Reported Medications Aspirin (Aspirin) 81 Mg Tablet.dr, 81 MG PO 04/23/17 Clonidine Hcl* (Clonidine Hcl*) 0.1 Mg Tab, 0.1 MG PO DAILY, TAB 04/23/17 Felodipine* (Felodipine*) 5 Mg Tab.sr.24h, 5 MG PO DAILY, TAB.SA 04/23/17 Lisinopril* (Lisinopril*) 40 Mg Tablet, 40 MG PO DAILY, #30 TAB 04/23/17 Metoprolol Tartrate* (Lopressor*) 50 Mg Tab, 50 MG PO BID, #60 TAB 04/23/17 Atorvastatin* (Atorvastatin*) 40 Mg Tablet, 10 MG PO QHS, #30 TAB 04/23/17 Ranitidine Hcl* (Ranitidine Hcl*) 150 Mg Tablet, 150 MG PO HS, #30 TAB 04/23/17 Glyburide* (Glyburide*) 5 Mg Tablet, 5 MG PO DAILY, #30 TAB 04/23/17 Metformin Hcl* (Metformin Hcl*) 500 Mg Tablet, 500 MG PO WITH BREAKFAST, #30 TAB 04/23/17 Allergies Allergies: Coded Allergies: No Known Allergy (Unverified , 04/23/17) PMhx/Soc History of Surgery: Yes (GALLBLADDER, TUBAL LIGATION , X 2 C SECTIONS ) Anesthesia Reaction: No Hx Neurological Disorder: No Hx Respiratory Disorders: No Hx Cardiac Disorders: Yes (HTN, HYPERLIPIDEMIA ) Hx Psychiatric Problems: No Hx Miscellaneous Medical Probl: Yes (see PT note) Hx Alcohol Use: No Hx Substance Use: No Hx Tobacco Use: No Smoking Status: Never smoker FmHx Family History: No diabetes Physical Exam Vitals Vital Signs Date Time Temp Pulse Resp B/P Pulse Ox O2 Delivery O2 Flow Rate FiO2 09/12/17 14:05 177/79 09/12/17 14:00 98.6 80 18 212/93 96 Physical Exam General: Well developed, well nourished, no acute distress Head: Normocephalic, atraumatic. Eyes: Pupils equally reactive, EOM intact ENT: Moist mucous membranes Neck: Supple, no lymphadenopathy Respiratory: Lungs clear bilaterally, no distress Cardiovascular: RRR, no murmurs, rubs, or gallops Abdominal: Soft, non-tender, non-distended, no peritoneal signs : Deferred MSK: No edema, no unilateral swelling, 5/5 strength, negative Homans sign, 2+ dorsalis pedis and posterior tibial pulses bilaterally Neurologic: Alert and oriented, moving all extremities, normal speech, no focal weakness, no cerebellar signs Skin: No rash Psych: Normal mood Result Diagram: 09/12/17 1558 Results 24 hrs Laboratory Tests Test 09/12/17 15:58 Sodium Level 138mmol/L Potassium Level 4.2mmol/L Chloride Level 106mmol/L Carbon Dioxide Level 20mmol/L Anion Gap 16 Blood Urea Nitrogen 13mg/dl Creatinine 0.39mg/dl Glucose Level 204mg/dl Calcium Level 9.4mg/dl Current Medications Medications (Trade) Dose Ordered Sig/Lauren Route PRN Reason Start Time Stop Time Status Last Admin Dose Admin Acetaminophen/ Hydrocodone Bitart ([place] (10/325)) 1 tab ONCE ONCE PO 09/12/17 16:00 09/12/17 16:04 DC 09/12/17 16:36 Procedures/MDM EKG, MONITORS, & DIAGNOSTIC IMAGING: Bilateral lower extremity duplex: No evidence of DVT per radiologist read LAB INTERPRETATION: No evidence of renal insufficiency MEDICAL DECISION MAKING: It appears the patient was sent to the emergency room to have routine blood testing and routine lower extremity duplex. The patient does not exhibit any clinical signs or symptoms concerning for DVT. She has no evidence of acute vascular occlusion no evidence of peripheral vascular disease. She has no evidence of cauda equina or cord compression and her back pain is chronic. The patient did not take her chronic pain medication and I will offer her oral pain medication here in the emergency room but did not feel the patient requires IV or IM narcotics. ER COURSE: The patient's chemistry profile is unrevealing and duplex shows no evidence of DVT. Her information was printed off for her follow-up benefit. She can follow -up with her pain medicine specialist for her routine and regular outpatient care. She has no evidence of acute organic or emergent condition at this time. I kept the patient and/or family informed of laboratory and diagnostic imaging results throughout the emergency room course. DISPOSITION PLAN: We discussed follow up with the patient's primary care doctor within 24 to 48 hours as needed. We also discussed return to the emergency room for worsening symptoms or worsening condition. Outpatient referral: [None required] Discharge Medications: None required, continue [place] Departure Diagnosis: Primary Impression: Encounter for laboratory test Additional Impression: Chronic pain Chronic pain type: chronic pain syndrome Qualified Code: G89.4 - Chronic pain syndrome Condition: Stable Patient Instructions: Chronic Pain Referrals: [facility] YOU HAVE RECEIVED A MEDICAL SCREENING EXAM AND THE RESULTS INDICATE THAT YOU DO NOT HAVE A CONDITION THAT REQUIRES URGENT TREATMENT IN THE EMERGENCY DEPARTMENT. FURTHER EVALUATION AND TREATMENT OF YOUR CONDITION CAN WAIT UNTIL YOU ARE SEEN IN YOUR DOCTORS OFFICE WITHIN THE NEXT 1-2 DAYS. IT IS YOUR RESPONSIBILITY TO MAKE AN APPOINTMENT FOR FOLOW-UP CARE. IF YOU HAVE A PRIMARY DOCTOR --you should call your primary doctor and schedule an appointment IF YOU DO NOT HAVE A PRIMARY DOCTOR YOU CAN CALL OUR PHYSICIAN REFERRAL HOTLINE AT IF YOU CAN NOT AFFORD TO SEE A PHYSICIAN YOU CAN CHOSE FROM THE FOLLOWING [facility] [address] [facility] [address] [facility] [facility] [address] [facility] [address] [facility] [address] [facility]. [facility]. [address] [facility]. [facility] YOU HAVE RECEIVED A MEDICAL SCREENING EXAM AND THE RESULTS INDICATE THAT YOU DO NOT HAVE A CONDITION THAT REQUIRES URGENT TREATMENT IN THE EMERGENCY DEPARTMENT. FURTHER EVALUATION AND TREATMENT OF YOUR CONDITION CAN WAIT UNTIL YOU ARE SEEN IN YOUR DOCTORS OFFICE WITHIN THE NEXT 1-2 DAYS. IT IS YOUR RESPONSIBILITY TO MAKE AN APPOINTMENT FOR FOLOW-UP CARE. IF YOU HAVE A PRIMARY DOCTOR --you should call your primary doctor and schedule and appointment IF YOU DO NOT HAVE A PRIMARY DOCTOR YOU CAN CALL OUR PHYSICIAN REFERRAL HOTLINE AT . IF YOU CAN NOT AFFORD TO SEE A PHYSICIAN YOU CAN CHOSE FROM THE FOLLOWING [facility] INSTITUTIONS: [facility] [address] [place] [address] [facility] [address] [place] [address] [facility] + [facility] [address] [place] [address] Additional Instructions: Call your primary care doctor TOMORROW for an appointment during the next 1 WEEK.Tell the medical assistant secretary that you were referred from this facility.See the doctor sooner or return here if your condition worsens before your appointment time. RICCARDO BAILEY MD Sep 12, 2017 16:55
[2017-09-12 17:26] VITALS: BP 147/83; PULSE 67; RESP 18; TEMP 98.3
== END 2017-09-12 17:33 | disposition home or self-care (01) ==
LOC: E/R 13:58
DX: G89.4 Chronic pain syndrome (principal); I10 Essential (primary) hypertension; Z79.82 Long term (current) use of aspirin; Z79.84 Long term (current) use of oral hypoglycemic drugs
CPT/HCPCS: 80048; 93970

== ENCOUNTER 2017-11-26 05:37 | Inpatient (IN) | END 2017-11-29 15:17 | disposition home or self-care (01) | DRG 519 ==